=== PATIENT | female | born 1945 | race Caucasian/White ===

== ENCOUNTER → 2017-07-29 | Outpatient (CLI) | payer OTHER | END | disposition home or self-care (01) | LOC: CFH 10:42 | PROVIDERS: ATTEND Internal Medicine Cardiovascular Disease | DX: I08.3 Combined rheumatic disorders of mitral, aortic and tricuspid valves (principal); I48.91 Unspecified atrial fibrillation; I10 Essential (primary) hypertension; I70.0 Atherosclerosis of aorta; E78.5 Hyperlipidemia, unspecified; Z85.3 Personal history of malignant neoplasm of breast; Z92.3 Personal history of irradiation | CPT/HCPCS: 93306 ==

== ENCOUNTER → 2017-08-18 | Outpatient (CLI) | payer OTHER | END | disposition home or self-care (01) | LOC: CFH 14:50 | PROVIDERS: ATTEND Family Medicine | DX: Z12.31 Encounter for screening mammogram for malignant neoplasm of breast (principal); Z85.3 Personal history of malignant neoplasm of breast; Z90.11 Acquired absence of right breast and nipple; Z92.3 Personal history of irradiation | CPT/HCPCS: G0202 ==

== ENCOUNTER → 2018-07-01 | Outpatient (CLI) | payer OTHER | END | disposition home or self-care (01) | LOC: CFH 08:35 | PROVIDERS: ATTEND Physician Assistant Medical | DX: I08.3 Combined rheumatic disorders of mitral, aortic and tricuspid valves (principal); I10 Essential (primary) hypertension; E78.5 Hyperlipidemia, unspecified; Z85.3 Personal history of malignant neoplasm of breast | CPT/HCPCS: 93306 ==

== ENCOUNTER → 2018-08-26 | Outpatient (CLI) | payer OTHER | END | disposition home or self-care (01) | LOC: CFH 14:56 | PROVIDERS: ATTEND Family Medicine | DX: Z12.31 Encounter for screening mammogram for malignant neoplasm of breast (principal); Z80.3 Family history of malignant neoplasm of breast | CPT/HCPCS: 77067 ==

== ENCOUNTER 2018-10-06 16:32 | Emergency (ER) | payer OTHER ==
[~2018-10-06] VITALS: Ht 172.7 cm; Wt 70.5 kg
[2018-10-06 18:27] VITALS: BP 173/73
== END 2018-10-06 19:24 | disposition home or self-care (01) ==
LOC: ED 19:05
DX: D16.32 Benign neoplasm of short bones of left lower limb (principal); M25.572 Pain in left ankle and joints of left foot; M79.89 Other specified soft tissue disorders; I10 Essential (primary) hypertension; I48.91 Unspecified atrial fibrillation
CPT/HCPCS: 99284

== ENCOUNTER 2019-06-10 16:26 | Emergency (ER) | payer OTHER ==
[~2019-06-10] VITALS: Ht 175.3 cm; Wt 69.0 kg
[2019-06-10 16:29] VITALS: BP 165/83
--- NOTE | 2019-06-10 18:14 | NUR ---
PT LEFT PRIOR TO BEING SEEN. DID NOT NOTIFY MICROPALEONTOLOGIST PRIOR TO LEAVING.
== END 2019-06-10 18:15 | disposition left against medical advice (07) ==
LOC: ED 18:00
DX: R04.0 Epistaxis (principal); Z53.21 Procedure and treatment not carried out due to patient leaving prior to being seen by health care provider

== ENCOUNTER → 2019-12-14 | Outpatient (CLI) | payer OTHER | END | disposition home or self-care (01) | LOC: CVU 07:49 | PROVIDERS: ATTEND Internal Medicine Cardiovascular Disease | DX: I83.93 Asymptomatic varicose veins of bilateral lower extremities (principal); I48.91 Unspecified atrial fibrillation; R20.0 Anesthesia of skin; I10 Essential (primary) hypertension | CPT/HCPCS: 93922; 93970 ==

== ENCOUNTER 2020-05-03 11:47 | Outpatient (CLI) | payer OTHER ==
[2020-05-03] MEDS ORDERED: NALOXONE 1 MG/ML, 2ML ONE (12:59)
[2020-05-03] MEDS ORDERED: FENTANYL PF 100 MCG/2ML ONE (12:59)
[2020-05-03] MEDS ORDERED: FLUMAZENIL 0.1 MG/1 ML, 5ML ONE (12:59)
[2020-05-03] MEDS ORDERED: MIDAZOLAM 1 MG/ML, 5ML ONE (12:59)
== END 2020-05-03 23:59 | disposition home or self-care (01) ==
LOC: RAD 11:47
PROVIDERS: ATTEND Family Medicine
DX: G89.29 Other chronic pain (principal); M54.9 Dorsalgia, unspecified; S24.11 Complete lesion of thoracic spinal cord; M51.37 Other intervertebral disc degeneration, lumbosacral region; I48.91 Unspecified atrial fibrillation; I10 Essential (primary) hypertension; E78.2 Mixed hyperlipidemia; N20.0 Calculus of kidney; C50.919 Malignant neoplasm of unspecified site of unspecified female breast; G25.81 Restless legs syndrome; F51.01 Primary insomnia; Z79.01 Long term (current) use of anticoagulants; Z79.899 Other long term (current) drug therapy; Z88.5 Allergy status to narcotic agent; Z88.8 Allergy status to other drugs, medicaments and biological substances; X58.XXXS Exposure to other specified factors, sequela
CPT/HCPCS: 72146; 99156; 99157; J2250; J3010; J2310

== ENCOUNTER → 2020-11-01 | Outpatient (CLI) | payer OTHER | END | disposition home or self-care (01) | LOC: EDSTATUS 11:00 → CFH 11:02 | PROVIDERS: ATTEND Family Medicine | DX: Z12.31 Encounter for screening mammogram for malignant neoplasm of breast (principal) | CPT/HCPCS: 77063; 77067 ==

== ENCOUNTER 2020-11-19 11:55 | Day surgery (SDC) | payer OTHER ==
[~2020-11-19] VITALS: Ht 175.3 cm; Wt 66.5 kg
[~2020-11-19 11:55] MED LIST: APIX5TAB PO; DILT240C77 PO; EZET10TA70 PO; SIMV20TA19 PO; ZOLP5TAB6 PO
[2020-11-19 12:15] VITALS: BP 174/109
[2020-11-19] MEDS ORDERED: LACTATED RINGERS 1,000 ML IV SCH (12:30)
[2020-11-19] MEDS ORDERED: CHLORHEXIDINE 15 ML UDC MM ONE (12:30)
[2020-11-19] MEDS ORDERED: ONDANSETRON 2MG/ML, 2ML IVPush PRN (14:00)
[2020-11-19] MEDS ORDERED: LABETALOL 5MG/ML, 20ML IV PRN (14:00)
[2020-11-19] MEDS ORDERED: MEPERIDINE/PF 25MG/0.5ML IVPush PRN (14:00)
[2020-11-19] MEDS ORDERED: METHOCARBAMOL 1,000 MG in DEXTROSE 5% 100 ML IV PRN (14:00)
[2020-11-19] MEDS ORDERED: EPHEDRINE 50 MG/ML, 1ML IVPush PRN (14:00)
[2020-11-19] MEDS ORDERED: FENTANYL PF 100 MCG/2ML IV PRN (14:00)
[2020-11-19] MEDS ORDERED: DIAZEPAM 5 MG/ML, 2ML IVPush PRN (14:00)
[2020-11-19] MEDS ORDERED: OXYcodone 5 MG/5 ML ORAL.SOL UDC PO PRN (14:00)
[2020-11-19] MEDS ORDERED: HYDROmorphone 1 MG/ML, 1ML INJ IVPush PRN (14:00)
[2020-11-19] MEDS ORDERED: ACETAMINOPHEN 325 MG TABLET PO PRN (14:00)
[2020-11-19] MEDS ORDERED: hydrALAzine 20 MG/ML, 1ML IV PRN (14:00)
[2020-11-19] MEDS ORDERED: PROMETHAZINE 25 MG/ML, 1ML IVPush PRN (14:00)
[2020-11-19] MEDS ORDERED: FENTANYL PF 250 MCG/5ML ONE (14:07)
[2020-11-19] MEDS ORDERED: BUPIVACAINE/PF 0.25% ONE (14:18)
[2020-11-19] MEDS ORDERED: MIDAZOLAM 1 MG/ML, 2ML ONE (14:32)
[2020-11-19] MEDS ORDERED: ROCURONIUM 10 MG/ML,10ML ONE (14:40)
[2020-11-19] MEDS ORDERED: CEFAZOLIN 1,000 MG ONE (14:40)
[2020-11-19] MEDS ORDERED: SUCCINYLCHOLINE 20 MG/ML, 10ML ONE (14:40)
[2020-11-19] MEDS ORDERED: ONDANSETRON 2MG/ML, 2ML ONE (14:40)
[2020-11-19] MEDS ORDERED: EPINEPHRINE 1 MG/ML, 1ML INFIL ONE (15:07)
[2020-11-19] MEDS ORDERED: PROPOFOL 50 ML ONE (15:28)
[2020-11-19] MEDS ORDERED: NEOSPORIN OINT, 15GM ONE (15:34)
== END 2020-11-19 18:30 | disposition home or self-care (01) ==
LOC: OUT 11:55
PROVIDERS: ATTEND Plastic Surgery
DX: C44.311 Basal cell carcinoma of skin of nose (principal); I48.91 Unspecified atrial fibrillation; I10 Essential (primary) hypertension; E78.5 Hyperlipidemia, unspecified; F41.9 Anxiety disorder, unspecified; E66.3 Overweight; Z68.22 Body mass index [BMI] 22.0-22.9, adult; Z20.828 Contact with and (suspected) exposure to other viral communicable diseases; Z79.01 Long term (current) use of anticoagulants; Z79.899 Other long term (current) drug therapy; Z85.3 Personal history of malignant neoplasm of breast; Z88.2 Allergy status to sulfonamides; Z88.5 Allergy status to narcotic agent; Z98.890 Other specified postprocedural states
CPT/HCPCS: 14060; 87635; 88305; 88331; 93005; J0171; J0330; J0690; J2250; J2405; J2704; J3010; J7120